=== PATIENT | male | born 1935 | race Caucasian/White ===

== ENCOUNTER 2019-08-02 18:10 | Emergency (ER) | payer MEDICARE, BC ==
[~2019-08-02] VITALS: Ht 180.3 cm; Wt 86.1 kg
[~2019-08-02 18:10] MED LIST: AMIO200T61 PO; ASPI-1009 PO; ATOR20TA PO; CLOP75TA35 PO; COR3.125T PO; FLO0.4C PO; LISI-222 PO; NICO-631 TD; NITR0.4T48 SL; POTA20TA19 PO
--- NOTE | 2019-08-02 18:50 | NUR ---
Stephane Perkins PA at bedside to elaine pt,
[2019-08-02] MEDS ORDERED: normal saline 1000ML IV soln IVB ONE (18:55)
--- NOTE | 2019-08-02 19:00 | NUR ---
Stephane HOLLAND gave verbal order to put pt on isolation precautions to r/o covid, pt c/o nonproductive cough x1 week, SOB progressively "getting worse over 6-7 months" per family, smoke 1 ppd (down from 2 ppd), no ETOH since 06/30, family said he use to drink alot, "had a scan of his lungs but we don't know the results", last normal bowel movement was yesterday, no n/v, no fever, no recent travel out the [facility], mid abd pain off and on "for several weeks", pt also being evaluated for dementia.
--- NOTE | 2019-08-02 19:14 | NUR ---
pt taken to main ER
[2019-08-02 20:18] LABS: BASOPHILS # (AUTO) 0.1 X10'3 (0-0.2); BASOPHILS % (AUTO) 1.1 % (0-1); EOSINOPHILS # (AUTO) 0.2 X10'3 (0-0.9); HEMOGLOBIN 14.4 g/dl (14.0-17.9); LYMPHOCYTES # (AUTO) 2.6 X10'3 (1.1-4.8); LYMPHOCYTES % (AUTO) 26.1 % (21-51); MEAN CORPUSCULAR HEMOGLOBIN 30.5 PG (27.0-31.0); MEAN CORPUSCULAR HGB CONC 33.6 g/dL (33.0-36.5); MEAN CORPUSCULAR VOLUME 90.8 FL (78-98); MEAN PLATELET VOLUME 8.2 FL (7.4-10.4); MONOCYTES # (AUTO) 0.9 X10'3 (0-0.9); MONOCYTES % (AUTO) 9.5 % (2-12); NEUTROPHILS % (AUTO) 61.3 % (42-75); PLATELET COUNT 273 X10'3 (140-440); RED BLOOD COUNT 4.73 X10'6 (4.70-6.10); RED CELL DISTRIBUTION WIDTH 14.1 % (11.5-14.5); WHITE BLOOD COUNT 9.8 X10'3 (4.5-11.0)
--- NOTE | 2019-08-02 20:25 | NUR ---
covvince johnson notified as well as primary rn neris
[2019-08-02 20:26] LABS: ALANINE AMINOTRANSFERASE 48 U/L (12-78); ALBUMIN 3.5 G/DL (3.4-5.0); ALKALINE PHOSPHATASE 81 IU/L (46-116); ANION GAP 10 (8-16); ASPARTATE AMINO TRANSFERASE 23 U/L (10-37); BILIRUBIN,TOTAL 1.7 MG/DL (0.1-1.0); BLOOD UREA NITROGEN 20 MG/DL (7-18); BUN/CREATININE RATIO 19.2 (5.4-32.0); CALCIUM 9.5 MG/DL (8.5-10.1); CHLORIDE 109 MMOL/L (99-107); CREATININE 1.04 MG/DL (0.60-1.10); GLUCOSE 110 MG/DL (70-104); LIPASE 69 U/L (73-393); POTASSIUM 3.6 MMOL/L (3.5-5.1); SODIUM 144 MMOL/L (135-145); TOTAL CARBON DIOXIDE 25.5 MMOL/L (24-32); TOTAL PROTEIN 6.9 G/DL (6.4-8.2); eGFR 68 ML/MIN
--- NOTE | 2019-08-02 20:26 | NUR ---
pt encouraged to void for urine speciman
--- NOTE | 2019-08-02 20:28 | NUR ---
pt to ct
--- NOTE | 2019-08-02 20:45 | NUR ---
pt back from ct
[2019-08-02 21:23] VITALS: BP 145/100
== END 2019-08-02 21:33 | disposition home or self-care (01) ==
LOC: ER 18:11
DX: R10.84 Generalized abdominal pain (principal); R11.0 Nausea
CPT/HCPCS: 36415; 71045; 74176; 80053; 83690; 84145; 85025; 87635; 99285; J7030

== ENCOUNTER 2021-01-09 11:52 | Emergency (ER) | payer MEDICARE, BC ==
[~2021-01-09] VITALS: Ht 180.3 cm; Wt 66.0 kg
[~2021-01-09 11:52] MED LIST changes: +CLOP75TA34 PO; -CLOP75TA35 PO; +POTA-207 PO; -POTA20TA19 PO
[2021-01-09 13:52] LABS: BASOPHILS # (AUTO) 0.2 X10'3 (0-0.2); BASOPHILS % (AUTO) 1.1 % (0-1); EOSINOPHILS % (AUTO) 0.1 % (0-6); HEMATOCRIT 31.7 % (42.0-52.0); HEMOGLOBIN 10.8 g/dl (14.0-17.9); LYMPHOCYTES # (AUTO) 1.5 X10'3 (1.1-4.8); LYMPHOCYTES % (AUTO) 11.6 % (21-51); MEAN CORPUSCULAR HEMOGLOBIN 29.9 PG (27.0-31.0); MEAN CORPUSCULAR VOLUME 87.8 FL (78-98); MEAN PLATELET VOLUME 7.4 FL (7.4-10.4); MONOCYTES # (AUTO) 1.4 X10'3 (0-0.9); MONOCYTES % (AUTO) 10.7 % (2-12); NEUTROPHILS # (AUTO) 10.1 X10'3 (1.8-7.7); NEUTROPHILS % (AUTO) 76.5 % (42-75); PLATELET COUNT 239 X10'3 (140-440); RED BLOOD COUNT 3.61 X10'6 (4.70-6.10); WHITE BLOOD COUNT 13.2 X10'3 (4.5-11.0)
[2021-01-09 14:06] LABS: ALANINE AMINOTRANSFERASE 39 U/L (12-78); ALBUMIN 3.3 G/DL (3.4-5.0); ALBUMIN/GLOBULIN RATIO 0.9 (1.1-1.5); ALKALINE PHOSPHATASE 111 IU/L (46-116); ANION GAP 10 (8-16); ASPARTATE AMINO TRANSFERASE 46 U/L (10-37); BILIRUBIN,TOTAL 2.1 MG/DL (0.1-1.0); BLOOD UREA NITROGEN 26 MG/DL (7-18); CALCIUM 9.1 MG/DL (8.5-10.1); CHLORIDE 104 MMOL/L (99-107); CREATININE 1.04 MG/DL (0.60-1.10); GLUCOSE 160 MG/DL (70-104); LIPASE < 50 U/L (73-393); POTASSIUM 3.8 MMOL/L (3.5-5.1); SODIUM 139 MMOL/L (135-145); TOTAL CARBON DIOXIDE 24.8 MMOL/L (24-32); TOTAL PROTEIN 6.9 G/DL (6.4-8.2); eGFR 68 ML/MIN
[2021-01-09] MEDS ORDERED: ondansetron/PF 4mg/2ml inj IV ONE (15:50)
[2021-01-09] MEDS ORDERED: iohexol 350MG/ML 100ml bottle IV ONE (15:57)
[2021-01-09] MEDS ORDERED: OMEP-50 PO (16:09)
[2021-01-09] MEDS ORDERED: METO-411 PO (16:09)
[2021-01-09] MEDS ORDERED: TIOT4MIS3 IH (16:09)
[2021-01-09] MEDS ORDERED: CYAN-51 PO (16:09)
[2021-01-09] MEDS ORDERED: RIVA20TA PO (16:09)
[2021-01-09] MEDS ORDERED: NITR0.4T51 SL (16:09)
[2021-01-09] MEDS ORDERED: CHOL200074 PO (16:09)
[2021-01-09] MEDS ORDERED: ATOR20TA66 PO (16:09)
[2021-01-09] MEDS ORDERED: FINA5TAB11 PO (16:09)
[2021-01-09] MEDS ORDERED: ALBU8.5H17 IH (16:09)
[2021-01-09] MEDS ORDERED: iohexol 300mg/ml 100ml inj. ONE (16:33)
[2021-01-09] MEDS ORDERED: nicotine 21mg patch - 24 hr TD ONE (17:30)
[2021-01-09 17:48] VITALS: BP 114/67
== END 2021-01-09 19:24 | disposition home or self-care (01) ==
LOC: ER 11:53
DX: R10.10 Upper abdominal pain, unspecified (principal); R10.13 Epigastric pain; R16.0 Hepatomegaly, not elsewhere classified; I48.91 Unspecified atrial fibrillation; I25.10 Atherosclerotic heart disease of native coronary artery without angina pectoris; F17.200 Nicotine dependence, unspecified, uncomplicated; Z95.5 Presence of coronary angioplasty implant and graft; Z95.0 Presence of cardiac pacemaker; Z85.46 Personal history of malignant neoplasm of prostate; Z79.82 Long term (current) use of aspirin; Z79.899 Other long term (current) drug therapy
CPT/HCPCS: 36415; 74177; 80053; 83690; 85025; 96374; 99285; J2405; Q9967